=== PATIENT | male | born 1995 | race African-American/Black ===

== ENCOUNTER 2016-07-16 13:33 | Emergency (ER) | payer BC ==
[2016-07-16 14:22] VITALS: BP 139/79
[2016-07-16 15:10] LABS: OBC FLU VALID
[2016-07-16] MEDS ORDERED: PROAIR HFA8.5 GM INH (15:27)
--- NOTE | 2016-07-16 15:27 | PHYS DOC ---
Past Medical History Past Medical History: No Pertinent History Past Surgical History: No Surgical History Additional Information: Nonsmoker Alcohol Use: Occasionally Drug Use: Marijuana Adult General Chief Complaint Chief Complaint: COUGH HPI HPI Patient is a 20 year old male who presents with productive cough and subjective fever starting 4 days ago. He has had mild shortness of breath, sore throat, nasal congestion, and one episode of vomiting. He denies ear pain, abdominal pain, or diarrhea. He is taking NyQuil, Benadryl, and Mucinex at home. He did not receive a flu shot. He denies any known sick contacts. He does not have a PCP. Review of Systems Review of Systems Constitutional: Reports subjective fever. Eyes: Denies change in visual acuity, redness, or eye pain. [] HENT: Denies ear pain. Reports nasal congestion and sore throat. Respiratory: Reports productive cough and mild shortness of breath. Cardiovascular: Denies chest pain, palpitations or edema. [] GI: Denies abdominal pain, bloody stools or diarrhea. Reports nausea with one episode of vomiting. Musculoskeletal: Denies back pain or joint pain. [] Integument: Denies rash or skin lesions. [] Neurologic: Denies headache, focal weakness or sensory changes. [] All systems reviewed and negative unless otherwise stated in the HPI. Allergies Allergies Allergies Coded Allergies Type Severity Reaction Last Updated Verified No Known Drug Allergies 07/16/16 No Physical Exam Physical Exam Constitutional: Well developed, well nourished, no acute distress, non-toxic appearance. [] HENT: Normocephalic, atraumatic, bilateral external ears normal, oropharynx moist, no oral exudates, nose normal. Bilateral TMs without erythema or bulging. There is no posterior pharyngeal erythema or tonsillar edema. Eyes: PERRLA, EOMI, conjunctiva normal, no discharge. [] Neck: Normal range of motion, no tenderness, supple, no stridor. [] Cardiovascular: Heart rate regular rhythm, no murmur [] Lungs & Thorax: Bilateral breath sounds clear to auscultation without wheezes, rales, or rhonchi. Skin: Warm, dry, no erythema, no rash. [] Neurologic: Alert and oriented X 3, normal motor function, normal sensory function, no focal deficits noted. [] Psychologic: Affect normal, judgement normal, mood normal. [] Current Patient Data Vital Signs Vital Signs Date Time Temp Pulse Resp B/P Pulse Ox O2 Delivery O2 Flow Rate FiO2 07/16/16 14:22 98.9 78 14 99 Room Air 98.9 Lab Values Laboratory Tests Test 07/16/16 14:30 Influenza Type A Antigen Positive (NEGATIVE) Influenza Type B Antigen Negative (NEGATIVE) EKG EKG [] Radiology/Procedures Radiology/Procedures [] Course & Med Decision Making Course & Med Decision Making Pertinent Labs and Imaging studies reviewed. (See chart for details) [] Dragon Disclaimer Dragon Disclaimer This electronic medical record was generated, in whole or in part, using a voice recognition dictation system. Departure Departure Impression: Primary Impression: Influenza A Disposition: HOME, SELF-CARE Condition: STABLE Referrals: NO PCP (PCP) Patient Instructions: Influenza, Adult, [id number] Additional Instructions: You tested positive for influenza A. This is a viral illness and antibiotics do not help. Please take Tylenol and ibuprofen for fever or pain. Use according to package instructions. Drink lots of water to stay hydrated and get lots of rest. Practice good hygiene including coughing into your elbow and washing your hands frequently. Return to emergency department with any new or concerning symptoms. Scripts Albuterol Sulfate (Proair Hfa Inhaler)8.5 Gm [id number] Puff INH Q4HRS PRN SHORTNESS OF BREATH #1 INHALER Prov:LADARIUS SARGENT 07/16/16 LADARIUS SARGENT Jul 16, 2016 15:27
== END 2016-07-16 15:35 | disposition home or self-care (01) ==
LOC: ER 13:33
DX: J09.X2 Influenza due to identified novel influenza A virus with other respiratory manifestations (principal); F12.10 Cannabis abuse, uncomplicated
CPT/HCPCS: 87804; 99284